=== PATIENT | male | born 1995 | race Caucasian/White ===

== ENCOUNTER 2024-08-21 19:08 | Emergency (ER) | payer MEDICAID ==
[~2024-08-21] VITALS: Ht 177.8 cm; Wt 79.0 kg
[2024-08-21 19:12] VITALS: O2SAT 99
[2024-08-21] MEDS ORDERED: ONDA4TAB50 PO (19:36)
[2024-08-21 20:11] VITALS: BP 137/90; PULSE 77; RESP 17; TEMP 36.78072; O2SAT 99
== END 2024-08-21 20:10 | disposition home or self-care (01) ==
LOC: ER 19:08
DX: R11.2 Nausea with vomiting, unspecified (principal); F19.90 Other psychoactive substance use, unspecified, uncomplicated
CPT/HCPCS: 99283